=== PATIENT | female | born 1960 | race Caucasian/White ===

== ENCOUNTER → 2016-07-08 | Outpatient (CLI) | payer OTHER ==
[~2016-07-08] MED LIST: ALEVE220 M1 PO; BIRTH CONTROL PILL PO; GABAPENTIN300 M2 PO; HYDROCODONE-APA1 T42 PO; LISINOPRIL20 MG PO; PANTOPRAZOLE SO40 MG PO; PAROXETINE HCL10 MG PO; PERCOCET 10/3251 TAB PO; PREMPRO 0.625-21 TAB PO; WAL-PROFEN200 M1 PO; [UNRECOGNIZED DRUG - OTHER]
--- NOTE | ~2016-07-08 | CT57 ---
[facility] A Service of [facility] & [facility] RADIOLOGY TEXT RESULTS PATIENT: MITCHELL WYMAN LOCATION: [facility]AT : 58 UNIT #: [id number] AGE: [address]: LEANNA WILEY SEX: F ORDER DR: [id number] [facility] [address] [place], [place] [address] [id number] O MR#: [id number] [facility] #: [id number] NAME: MITCHELL WYMAN : 1960 SEX: F STUDY DATE/TIME: 07/08/2016 15:05 UNIT: [facility] ROOM: STUDY DESCRIPTION: CT Chest Wo Cont Attending Physician: Leanna Wiley Aprn Referring Physician: Leanna Wiley Aprn Ordering Physician: Leanna Wiley Aprn Primary Care Physician: Israel Anthony D.O. MEDICAL IMAGING REPORT This report is preliminary unless electronic signature is present EXAM CT chest without contrast HISTORY Right pulmonary nodule noted on CT abdomen studies 04/01/2016 and 04/03/2016. This CT exam was performed with one or more of the following radiation dose reduction techniques: automatic exposure control, adjustment of mA and/or kV according to patient size, and iterative reconstruction. FINDINGS CT chest without contrast demonstrates a stable 8 mm pulmonary nodule in the inferomedial right lower lobe extending into the costophrenic sulcus, unchanged compared to prior CTs 04/01/2016 and 04/03/2016. Followup CT chest in 6-12 months should be considered to evaluate for stability. No additional pulmonary nodule. No infiltrates. No effusions. There is mild bronchiectasis in the medial left lower lobe. Minimal atelectasis in the medial right middle lobe. Incidental azygos lobe. Moderate sized hiatal hernia. No adenopathy. Normal caliber thoracic aorta. No pericardial thickening or effusion. IMPRESSION 1. Stable 8 mm subpleural pulmonary nodule in the inferomedial right lower lobe extending to the costophrenic sulcus. This is unchanged compared to CTs 04/01/2016 and 04/03/2016. Followup CT chest in 6 to 12 months is recommended. 2. Very mild bronchiectasis in the medial left lower lobe. 3. No additional pulmonary nodule. No infiltrates or effusions. No adenopathy. 4. Moderate sized hiatal hernia. STS. [facility] A Service of [facility] & [facility] RADIOLOGY TEXT RESULTS PATIENT: MITCHELL WYMAN LOCATION: [facility] : 58 UNIT #: [id number] AGE: [address]: LEANNA WILEY SEX: F ORDER DR: Dictated by... Allan Kuhn M.D. THIS IS AN ELECTRONICALLY VERIFIED REPORT Allan Kuhn M.D. at 07/08/2016 10:51 PM DFVirgen/[email or web address] TD: 07/08/2016 20:44 JOB #: [id number] MEDICAL IMAGING REPORT Page 1 of 1 COPY
== END | disposition home or self-care (01) ==
LOC: CCAT 14:31
DX: R91.1 Solitary pulmonary nodule (principal); J47.9 Bronchiectasis, uncomplicated; K44.9 Diaphragmatic hernia without obstruction or gangrene
CPT/HCPCS: 71250

== ENCOUNTER → 2016-09-04 | Day surgery (SDC) | payer OTHER ==
--- NOTE | ~2016-09-04 | OR ---
Unit #: [id number] #: [id number] Patient: MITCHELL WYMAN [id number] [address] [place], [place] [address] [id number] O MR#: [id number] NAME: MITCHELL WYMAN ROOM: Date of Procedure: 09/04/2016 Admission Date: 09/04/2016 Surgeon: Jeevan Mccauley M.D. : 1960 Attending Physician: Jeevan Mccauley M.D. Primary Care Physician: Israel Anthony D.O. OPERATIVE REPORT PREOPERATIVE DIAGNOSES Back pain, radiculopathy, degenerative disk disease, degenerative facet disease. POSTOPERATIVE DIAGNOSES Back pain, radiculopathy, degenerative disk disease, degenerative facet disease. PROCEDURE PERFORMED Lumbar epidural steroid injection with intravenous sedation and fluoroscopic guidance for needle localization. INDICATIONS FOR PROCEDURE The patient is a 56-year-old female, who has had a return of left-sided back, buttock, and lower extremity pain with lower extremity numbness. She was last treated with epidural steroid injections 7 months ago. She did well for about 5 to 6 months. The pain has quite significant over the last month or so especially the left-side of her back, buttock, hip, leg with numbness in the left flank. New MRI showed disease mostly at the L4-5 level with facet and discogenic problems and annular bulging and synovial thickening causing narrowing most significant at left L4-5 nerve root with possible L4 contacting the left and there was moderate facet disease at L5-S1, moderate L2-3 and L3-4. Based on the patient's good prior response to pathology and symptomatology, we are going to proceed with a repeat epidural steroid injection today. DESCRIPTION OF PROCEDURE The patient was placed in a seated position. Standard monitors were applied. 4 mg of Versed were given for sedation and anxiolysis, which were adequate. Vital signs remained stable. Sterile prep and drape then of the lumbar area was performed. The skin then at the L4-5 level was localized with 1% lidocaine. An 18-gauge Argos Risk needle was then advanced via loss of resistance technique and fluoroscopic guidance in toward the epidural space. After confirming proper positioning with fluoroscopy and radiographic contrast, 80 mg of Depo-Medrol and 4 mL of 0.125% bupivacaine were deposited. The patient tolerated the procedure otherwise well and was discharged to the recovery room in stable condition. Dictated by... Jeevan Mccauley M.D. Unit #: [id number] #: [id number] Patient: MITCHELL WYMAN LHAliza/torie TD: 09/04/2016 09:40 JOB #: [id number] OPERATIVE REPORT Page 1 of 1 X Jeevan Mccauley MD X PROCEDURE OPERATIVE NOTE
== END | disposition home or self-care (01) ==
LOC: CCSC 07:59
DX: M51.16 Intervertebral disc disorders with radiculopathy, lumbar region (principal); M53.87 Other specified dorsopathies, lumbosacral region; M53.86 Other specified dorsopathies, lumbar region; M48.06 Spinal stenosis, lumbar region
CPT/HCPCS: J1040; J2250